=== PATIENT | male | born 1975 | race Asian ===

== ENCOUNTER 2018-07-21 22:53 | Emergency (ER) | payer MEDICAID ==
[~2018-07-21] VITALS: Ht 180.3 cm; Wt 82.1 kg
[2018-07-21 23:24] LABS: BASOPHILS # (AUTO) 0.1 K/uL (0.0-8.0); BASOPHILS % (AUTO) 1.2 % (0.0-2.0); EOSINOPHILS # (AUTO) 0.7 K/uL (0.0-0.7); EOSINOPHILS % (AUTO) 9.6 % (0.0-7.0); HEMATOCRIT 42.8 % (36.7-47.1); HEMOGLOBIN 15.2 g/dL (12.5-16.3); LYMPHOCYTES # (AUTO) 2.2 K/uL (20.0-40.0); LYMPHOCYTES % (AUTO) 29.7 % (20.5-51.5); MEAN CORPUSCULAR HEMOGLOBIN 31.4 uug (23.8-33.4); MEAN CORPUSCULAR HGB CONC 35 g/dL (32.5-36.3); MEAN CORPUSCULAR VOLUME 88.9 fL (73.0-96.2); MONOCYTES # (AUTO) 0.7 K/uL (2.0-10.0); MONOCYTES % (AUTO) 8.9 % (0.0-11.0); NEUTROPHILS # (AUTO) 3.7 K/uL (1.8-8.9); NEUTROPHILS % (AUTO) 50.6 % (38.5-71.5); PLATELET COUNT (AUTO) 283 K/uL (152-348); RED BLOOD CELL COUNT(AUTO) 4.82 MIL/uL (4.06-5.63); WHITE BLOOD COUNT (AUTO) 7.4 K/uL (3.6-10.2)
[2018-07-21 23:31] LABS: CARBON DIOXIDE 26 mmol/L (21-32); CHLORIDE 102 mmol/L (98-107); CREATININE 0.8 mg/dL (0.6-1.3); GLUCOSE 120 mg/dL (74-106); POTASSIUM 3.5 mmol/L (3.5-5.1); UREA NITROGEN, BLOOD 6 mg/dL (7-18)
[2018-07-21] MEDS ORDERED: ASPI81TA31 GT (23:36)
[2018-07-21] MEDS ORDERED: IPRA3AMP23 IH (23:36)
[2018-07-21] MEDS ORDERED: MAGN400O6 GT (23:36)
[2018-07-21] MEDS ORDERED: BLOO-140 IN (23:36)
[2018-07-21] MEDS ORDERED: LORA1TAB GT (23:36)
[2018-07-21] MEDS ORDERED: RISP1TAB7 GT (23:36)
[2018-07-21] MEDS ORDERED: PROP10TA10 GT (23:36)
[2018-07-21] MEDS ORDERED: PANT40SU2 GT (23:36)
[2018-07-21] MEDS ORDERED: MULT-213 GT (23:36)
[2018-07-21] MEDS ORDERED: LACT10SO GT (23:36)
[2018-07-21 23:37] LABS: ALANINE AMINOTRANSFERASE 23 U/L (16-63); ALKALINE PHOSPHATASE 74 U/L (50-136); ASPARTATE AMINOTRANSFERASE 17 U/L (15-37); BILIRUBIN,DIRECT < 0.1 mg/dL (0.0-0.2); BILIRUBIN,TOTAL 0.2 mg/dL (0.2-1.0); TOTAL PROTEIN, SERUM 7.1 g/dL (6.4-8.2)
[2018-07-21 23:43] LABS: ETHANOL < 3 MG/DL (0-0)
[2018-07-21 23:47] LABS: *BILIRUBIN,URIN NEGATIVE (NEGATIVE); *BLOOD, URINE Trace-intact (NEGATIVE); *CLARITY,URINE CLEAR (CLEAR); *KETONES,URINE NEGATIVE (NEGATIVE); *PROTEIN,URINE NEGATIVE (NEGATIVE); *UROBILINOGEN,URINE 0.2 E.U./dl (NORMAL); LEUKOCYTE ESTERASE ,URINE NEGATIVE (NEGATIVE); NITRITE, URINE NEGATIVE (NEGATIVE); UGLUCOSE NEGATIVE (NEGATIVE)
--- NOTE | 2018-07-21 23:47 | NUR ---
Call placed to Rick Tracy LCSW, for PET evaluation.
[2018-07-21 23:57] LABS: *COLOR,URINE STRAW (YELLOW)
[2018-07-21 23:58] LABS: BACTERIA,URINE NONE SEEN /HPF (NONE SEEN); RBC,URINE 0-3 /HPF (0-3); SQUAMOUS EPITHELIAL CELL,UR NONE SEEN /HPF (NONE SEEN); WBC,URINE 0-3 /HPF (0-3)
[2018-07-22 00:06] LABS: *AMPHETAMINE, URINE NEGATIVE (NEGATIVE); *BARBITURATE, URINE NEGATIVE (NEGATIVE); *CANNABINOID, URINE NEGATIVE (NEGATIVE); *COCCAINE, URINE NEGATIVE (NEGATIVE); *OPIATE, URINE NEGATIVE (NEGATIVE); *PHENCYCLIDINE SCREEN,URINE NEGATIVE (NEGATIVE)
--- NOTE | 2018-07-22 02:00 | NUR ---
Patient does not meet 5150 criteria at this time per Rick Tracy LCSW. Patient can be returned to [facility] facility.
--- NOTE | 2018-07-22 02:08 | NUR ---
YADI spoke to sussy De Oliveira with patient returning to facility.
--- NOTE | 2018-07-22 02:12 | NUR ---
Call placed to [facility] for transportation, ETA 30 min, Trip #[id number].
--- NOTE | 2018-07-22 03:26 | NUR ---
Patient discharged to home, via ambulance in stable conditon. Written and verbal after care instructions given. Patient verbalizes understanding of instructions.
== END 2018-07-22 03:28 | disposition home or self-care (01) ==
LOC: ER 22:55
DX: R45.1 Restlessness and agitation (principal); E11.9 Type 2 diabetes mellitus without complications; F20.9 Schizophrenia, unspecified; F17.290 Nicotine dependence, other tobacco product, uncomplicated; Z79.899 Other long term (current) drug therapy; Z79.82 Long term (current) use of aspirin
CPT/HCPCS: 36415; 71045; 80048; 80076; 80307; 81001; 85025; 93005; 99284; 99406; G0480; A4663